=== PATIENT | female | born 1995 | race Caucasian/White ===

== ENCOUNTER 2022-03-06 09:05 | Emergency (ER) | payer BC ==
[~2022-03-06] VITALS: Ht 154.9 cm; Wt 68.2 kg
[2022-03-06] MEDS ORDERED: LEVO100 PO (09:10)
[2022-03-06 09:44] VITALS: BP 117/68
[2022-03-06] MEDS ORDERED: CIPR7.5D AU (10:03)
== END 2022-03-06 10:22 | disposition home or self-care (01) ==
LOC: EMS 09:13
DX: H60.93 Unspecified otitis externa, bilateral (principal); E05.90 Thyrotoxicosis, unspecified without thyrotoxic crisis or storm
CPT/HCPCS: 99283; Z7502